=== PATIENT | male | born 1985 | race Caucasian/White ===

== ENCOUNTER → 2020-08-13 | Outpatient (CLI) | payer BC | END | disposition home or self-care (01) | LOC: RAD 13:24 | PROVIDERS: ATTEND Nurse Practitioner | DX: S86.012A Strain of left Achilles tendon, initial encounter (principal); M65.871 Other synovitis and tenosynovitis, right ankle and foot; X58.XXXA Exposure to other specified factors, initial encounter; Y93.89 Activity, other specified; Y92.89 Other specified places as the place of occurrence of the external cause; Y99.8 Other external cause status ==